=== PATIENT | male | born 1980 | race Caucasian/White ===

== ENCOUNTER 2017-05-18 23:17 | Emergency (ER) | payer SELFPAY ==
[~2017-05-18] VITALS: Ht 167.6 cm; Wt 73.0 kg
[2017-05-18 23:20] VITALS: BP 130/82
== END 2017-05-19 01:58 | disposition left against medical advice (07) ==
LOC: ER 23:17
DX: F10.129 Alcohol abuse with intoxication, unspecified (principal); Z53.21 Procedure and treatment not carried out due to patient leaving prior to being seen by health care provider